=== PATIENT | female | born 1945 | race Two or more races ===

== ENCOUNTER → 2016-10-15 | Outpatient (CLI) | payer OTHER ==
[2016-10-15 17:45] LABS: Basophils # (auto) 0.1 uL; Basophils % (auto) 0.5 % (0.0-2.0); Eosinophils # (auto) 0.3 uL; Eosinophils % (auto) 2.5 % (0.0-7.0); Hematocrit 45.9 % (36.0-46.0); Hemoglobin 15.3 g/dL (12.2-16.2); Lymphocytes % (auto) 35.9 % (10.0-50.0); Mean Corpuscular Hemoglobin 29.9 pg (28.0-32.0); Mean Corpuscular Hgb Conc. 33.2 g/dL (32.0-36.0); Mean Platelet Volume 9.7 fL (7.4-10.4); Monocytes % (auto) 6.8 % (0.0-12.0); Neutrophils # (auto) 7.6 uL; Neutrophils % (auto) 54.3 % (37.0-80.0); Platelet Count (auto) 388 10^3/uL (140-450); Red Cell Distribution Width 14.2 % (11.6-16.0)
[2016-10-15 17:59] LABS: Albumin 3.7 g/dL (3.4-5.0); BUN/Creatinine Ratio 27.3; Bilirubin, Total 0.2 mg/dL (0.2-1.0); Calcium 10.1 mg/dL (8.5-10.1); Potassium 4.5 mmol/L (3.5-5.1); Total Protein 7.6 g/dL (6.4-8.2)
== END | disposition home or self-care (01) ==
LOC: LAB 12:01
PROVIDERS: ATTEND Internal Medicine Cardiovascular Disease
DX: I10 Essential (primary) hypertension (principal); E78.00 Pure hypercholesterolemia, unspecified; E11.9 Type 2 diabetes mellitus without complications; E03.9 Hypothyroidism, unspecified; D64.9 Anemia, unspecified
CPT/HCPCS: 36415; 80053; 80061; 83036; 84439; 84443; 85025

== ENCOUNTER → 2017-03-08 | Outpatient (CLI) | payer BC ==
[2017-03-08 16:28] LABS: Urine Bilirubin Negative (Negative); Urine Blood Negative /uL (Negative); Urine Color Yellow (Yellow); Urine Glucose 4+ mg/dL (Normal); Urine Ketone Negative (Negative); Urine Nitrite POSITIVE (Negative); Urine Urobilinogen Normal (Negative)
[2017-03-08 16:36] LABS: Basophils # (auto) 0.1 uL; Basophils % (auto) 0.8 % (0.0-2.0); Eosinophils # (auto) 0.4 uL; Eosinophils % (auto) 3.5 % (0.0-7.0); Hemoglobin 16.4 g/dL (12.2-16.2); Lymphocytes # (auto) 3.8 uL; Mean Corpuscular Hemoglobin 30.5 pg (28.0-32.0); Mean Corpuscular Hgb Conc. 33.4 g/dL (32.0-36.0); Mean Corpuscular Volume 91.4 fL (80.0-100.0); Mean Platelet Volume 9.2 fL (6.9-10.8); Monocytes % (auto) 8.1 % (0.0-12.0); Neutrophils # (auto) 6.5 uL; Neutrophils % (auto) 55.6 % (37.0-80.0); Nucleated Red Blood Cells % 0.2 %; Platelet Count (auto) 342 10^3/uL (140-450); Red Cell Distribution Width 13.8 % (11.8-14.3); White Blood Cell 11.8 10^3/uL (4.4-10.8)
[2017-03-08 16:51] LABS: Albumin 4.1 g/dL (3.4-5.0); BUN/Creatinine Ratio 19.5; Bilirubin, Direct 0.1 mg/dL (0-0.2); Bilirubin, Total 0.3 mg/dL (0.2-1.0); Calcium 10.1 mg/dL (8.5-10.1); Potassium 4.7 mmol/L (3.5-5.1); Total Protein 8.2 g/dL (6.4-8.2)
== END | disposition home or self-care (01) ==
LOC: LAB 10:43
PROVIDERS: ATTEND Internal Medicine Cardiovascular Disease
DX: I10 Essential (primary) hypertension (principal); E78.00 Pure hypercholesterolemia, unspecified; K74.1 Hepatic sclerosis; E11.9 Type 2 diabetes mellitus without complications; E03.9 Hypothyroidism, unspecified; D64.9 Anemia, unspecified; E55.9 Vitamin D deficiency, unspecified; N39.0 Urinary tract infection, site not specified
CPT/HCPCS: 36415; 80048; 80061; 80076; 81003; 82306; 83036; 84443; 85025; 87086

== ENCOUNTER → 2017-11-01 | Outpatient (CLI) | payer BC ==
[2017-11-01 12:48] LABS: Albumin 3.6 g/dL (3.4-5.0); Bilirubin, Total 0.3 mg/dL (0.2-1.0); Calcium 9.8 mg/dL (8.5-10.1); Total Protein 7.4 g/dL (6.4-8.2)
== END | disposition home or self-care (01) ==
LOC: LAB 10:36
PROVIDERS: ATTEND Internal Medicine
DX: E78.5 Hyperlipidemia, unspecified (principal); I10 Essential (primary) hypertension; E03.9 Hypothyroidism, unspecified; E11.9 Type 2 diabetes mellitus without complications
CPT/HCPCS: 36415; 80053; 80061; 83036; 84443

== ENCOUNTER → 2018-06-02 | Outpatient (CLI) | payer BC ==
[2018-06-02 12:22] LABS: Albumin 3.4 g/dL (3.4-5.0); Calcium 9.2 mg/dL (8.5-10.1)
[2018-06-02 12:36] LABS: BUN/Creatinine Ratio 25.6; Bilirubin, Total 0.2 mg/dL (0.2-1.0); Total Protein 6.9 g/dL (6.4-8.2)
== END | disposition home or self-care (01) ==
LOC: LAB 10:22
PROVIDERS: ATTEND Internal Medicine
DX: E11.40 Type 2 diabetes mellitus with diabetic neuropathy, unspecified (principal); E78.5 Hyperlipidemia, unspecified; I10 Essential (primary) hypertension
CPT/HCPCS: 36415; 80053; 80061; 83036

== ENCOUNTER 2018-07-25 12:39 | Inpatient (IN) | payer BC, OTHER ==
[~2018-07-25] VITALS: Ht 162.6 cm; Wt 80.6 kg
[2018-07-25] MEDS ORDERED: HYDROcodone-ACET 5/325MG TAB PO ONE (16:00)
[2018-07-25 17:01] LABS: Basophils # (auto) 0.2 uL; Eosinophils # (auto) 0.2 uL; Hematocrit 47.2 % (36.0-46.0); Hemoglobin 15.5 g/dL (12.2-16.2); Lymphocytes # (auto) 3.6 uL; Lymphocytes % (auto) 22.3 % (10.0-50.0); Mean Corpuscular Hemoglobin 29.6 pg (28.0-32.0); Mean Corpuscular Hgb Conc. 32.8 g/dL (32.0-36.0); Mean Corpuscular Volume 90.1 fL (80.0-100.0); Monocytes # (auto) 1.1 uL; Monocytes % (auto) 7.1 % (0.0-12.0); Neutrophils # (auto) 11.1 uL; Neutrophils % (auto) 68.6 % (37.0-80.0); Nucleated Red Blood Cells % 0.1 %; Platelet Count (auto) 328 10^3/uL (140-450); Red Blood Cells 5.24 10^6/uL (4.0-5.20); White Blood Cell 16.2 10^3/uL (4.4-10.8)
[2018-07-25 17:17] LABS: Albumin 3.8 g/dL (3.4-5.0); Calcium 9.8 mg/dL (8.5-10.1); Potassium 5.2 mmol/L (3.5-5.1)
[2018-07-25 17:21] LABS: BUN/Creatinine Ratio 24.7; Bilirubin, Total 0.3 mg/dL (0.2-1.0); Total Protein 7.2 g/dL (6.4-8.2)
[2018-07-25 17:22] LABS: INR 0.97 (0.9-1.15); Partial Thromboplastin Time 24.8 sec (23.78-33.04); Prothrombin Time 10.4 sec (9.27-12.13)
[2018-07-25] MEDS ORDERED: SODIUM CHLORIDE 0.9% 2,000 ML IV ONE (17:54)
[2018-07-25] MEDS ORDERED: cefTRIAXone 1GM/50ML D5W 50 ML IV ONE (18:00)
[2018-07-25 18:28] LABS: Urine Bacteria MANY /hpf (None Seen); Urine Blood Negative /uL (Negative); Urine Hyaline Cast FEW /lpf (0 - 2); Urine Specific Gravity 1.022 (1.001-1.035); Urine WBC 1 /hpf (0 - 5)
[2018-07-25] MEDS ORDERED: MORPHINE SULFATE 4 MG/ML SYR/VIAL IV PRN (18:30)
[2018-07-25] MEDS ORDERED: ALBUTEROL SULF 2.5 MG/0.5ML(0.5%) NEB SOLN NEB PRN (18:30)
[2018-07-25] MEDS ORDERED: DEXTROSE (50%) 50ML SYRG IV PRN (18:30)
[2018-07-25] MEDS ORDERED: ACETAMINOPHEN 500 MG TAB PO PRN (18:30)
[2018-07-25] MEDS ORDERED: NITROGLYCERIN 0.4 MG SL TAB SL PRN (18:30)
[2018-07-25] MEDS ORDERED: IPRATROPIUM BROM 0.5 MG/2.5ML INH SOL NEB PRN (18:30)
[2018-07-25] MEDS: ACCU-CHEK COMFORT CURVE STRIP VI SCH (19:44)
[2018-07-25 20:06] VITALS: BP 150/85
[2018-07-25 20:18] VITALS: BP 120/64
--- NOTE | 2018-07-25 21:00 | NUR ---
OPENING NOTE RECEIVED PATIENT FROM ER. ASSUMING ROLE OF CARE OF PATIENT AT THIS TIME. PATIENT SHOWING NO SIGN OF DISTRESS, SHORTNESS OF BREATH, AND PATIENT STATES PAIN AT 9/10. PATIENT WILL BE MEDICATED PER PAIN PROTOCOL WHEN AVAILABLE. PATIENT EDUCATED ON PLAN OF CARE FOR THE NIGHT AND PATIENT VERBALIZED UNDERSTANDING. BED LOWERED, CALL LIGHT WITHIN REACH AND PATIENT WILL BE ROUNDED ON EVERY HOUR AND NEEDED.
[2018-07-25] MEDS: MORPHINE SULF INJ 2 MG/ML SYRINGE 1ML IV PRN (21:02)
[2018-07-25] MEDS ORDERED: TEMA30CA PO (21:21)
[2018-07-25] MEDS ORDERED: LISI-275 PO (21:21)
[2018-07-25] MEDS ORDERED: PRO10T PO (21:21)
[2018-07-25] MEDS ORDERED: METF-371 PO (21:21)
[2018-07-25] MEDS ORDERED: GLIM4TAB42 PO (21:21)
[2018-07-25] MEDS ORDERED: GEMF600T7 PO (21:21)
[2018-07-25] MEDS ORDERED: LEVO50TA7 PO (21:21)
[2018-07-25] MEDS ORDERED: SITA100T7 PO (21:21)
[2018-07-25 22:00] VITALS: BP 150/85
--- NOTE | 2018-07-25 22:01 | NUR ---
HOSPITALIST PAGED PATIENT REQUESTING A NICOTINE PATCH. PATIENT UNABLE TO WALK DOWN TO SMOKE AND IS REQUESTING A PATCH FOR HER CRAVINGS.
[2018-07-25] MEDS: TEMAZEPAM 15 MG CAP PO PRN (22:09)
[2018-07-25] MEDS: InsuLIN REG 1unit/0.01ml Soln (100units/ml) SC SCH (22:09)
--- NOTE | 2018-07-25 22:15 | NUR ---
Respiratory note: PT ASSESSED FOR PRN MED NEB TX. PT DENIES ANY SOB AT THIS TIME. B/S ARE DIM/ CLEAR. SPO2 94% ON R/A, HR 70, RR 18. PT INFORMED TO HAVE RT PAGED IF NEEDED.
[2018-07-25] MEDS ORDERED: NICOTINE 14 MG/24HR TOPICAL PATCH TD ONE (22:30)
[2018-07-26] MEDS: HYDROcodone-ACET 5/325MG TAB PO PRN (00:04)
[2018-07-26] MEDS: MORPHINE SULF INJ 2 MG/ML SYRINGE 1ML IV PRN ×2 (04:00→20:59)
[2018-07-26 05:26] VITALS: BP 124/66
[2018-07-26 05:54] LABS: Basophils # (auto) 0.1 uL; Basophils % (auto) 0.6 % (0.0-2.0); Eosinophils # (auto) 0.2 uL; Eosinophils % (auto) 2.6 % (0.0-7.0); Hematocrit 41.9 % (36.0-46.0); Hemoglobin 13.9 g/dL (12.2-16.2); Lymphocytes # (auto) 3.3 uL; Lymphocytes % (auto) 35.6 % (10.0-50.0); Mean Corpuscular Hemoglobin 29.9 pg (28.0-32.0); Mean Corpuscular Hgb Conc. 33.2 g/dL (32.0-36.0); Mean Corpuscular Volume 90.1 fL (80.0-100.0); Monocytes % (auto) 10.5 % (0.0-12.0); Neutrophils # (auto) 4.7 uL; Neutrophils % (auto) 50.7 % (37.0-80.0); Platelet Count (auto) 278 10^3/uL (140-450); Red Blood Cells 4.65 10^6/uL (4.0-5.20); White Blood Cell 9.3 10^3/uL (4.4-10.8)
[2018-07-26 06:17] LABS: Potassium 4.2 mmol/L (3.5-5.1)
[2018-07-26 06:32] LABS: BUN/Creatinine Ratio 29.6; Calcium 8.7 mg/dL (8.5-10.1)
[2018-07-26 08:00] VITALS: BP 156/73
--- NOTE | 2018-07-26 08:00 | NUR ---
RECEIVED PT RESTING IN BED, CALL LIGHT WITH IN REACH, PT DENIES ANY PAIN OR DISCOMFORT AT THIS TIME, WILL CONTINUE TO MONITOR PT.
[2018-07-26 09:00] VITALS: BP 150/73
[2018-07-26] MEDS: cefTRIAXone 1GM/50ML D5W 50 ML IV SCH (09:07)
[2018-07-26] MEDS ORDERED: GASTROGRAFIN 30 ML SOL ONE ×2 (09:38→14:27)
--- NOTE | 2018-07-26 10:19 | NUR ---
I faxed walker order to [facility].
[2018-07-26] MEDS: ACCU-CHEK COMFORT CURVE STRIP VI SCH ×3 (11:30→22:00)
[2018-07-26] MEDS: InsuLIN REG 1unit/0.01ml Soln (100units/ml) SC SCH ×3 (12:23→22:00)
[2018-07-26 13:00] VITALS: BP 150/73
--- NOTE | 2018-07-26 13:25 | NUR ---
PT TAKEN TO RADIOLOGY.
[2018-07-26] MEDS ORDERED: GADOPENTETATE DIMEGLUMINE (10MMOL/20 ML) VIAL IV ONE (13:45)
--- NOTE | 2018-07-26 14:50 | NUR ---
I called [facility] to check on ETA for walker, per Katherine at [facility] patient's Seth is going to sweet pickle maker the item from their building.
[2018-07-26] MEDS ORDERED: NICOTINE 21MG/24 HR TOPICAL PATCH TD ONE (16:00)
[2018-07-26] MEDS ORDERED: IOHEXOL 300 MG/ML 100ML BOTTLE IJ ONE ×2 (16:09→16:15)
[2018-07-26 17:00] VITALS: BP 121/72
--- NOTE | 2018-07-26 17:00 | NUR ---
PT BACK AT THE ROOM FROM RADIOLOGY.
--- NOTE | 2018-07-26 19:28 | NUR ---
Respiratory note: ASSESSED PT FOR PRN MED NEB AT THIS TIME, PT DENIES SOB AT THIS TIME, NO RESP DISTRESS NOTED, NO TX INDICATED, PULSE OX 92% ON RA, HR 103, RR 20, BILATERAL BS DECREASED.
[2018-07-26 22:00] VITALS: BP 134/65
[2018-07-26] MEDS: TEMAZEPAM 15 MG CAP PO PRN (23:50)
[2018-07-26] MEDS: ONDANSETRON HCL 4 MG/2 ML VIAL IV PRN (23:59)
[2018-07-27] MEDS: HYDROcodone-ACET 5/325MG TAB PO PRN (02:51)
[2018-07-27 05:25] VITALS: BP 108/64
[2018-07-27] MEDS: InsuLIN REG 1unit/0.01ml Soln (100units/ml) SC SCH ×4 (06:21→22:19)
[2018-07-27] MEDS: ACCU-CHEK COMFORT CURVE STRIP VI SCH ×4 (06:21→22:20)
[2018-07-27 08:00] VITALS: BP 119/84
[2018-07-27 08:06] LABS: Immunoglobulin G, Serum 480 mg/dL (700-1600)
--- NOTE | 2018-07-27 08:47 | NUR ---
pt reports she doesn't want to wear her slipper socks, as she is hot.
[2018-07-27] MEDS: cefTRIAXone 1GM/50ML D5W 50 ML IV SCH (09:06)
[2018-07-27] MEDS: NICOTINE 21MG/24 HR TOPICAL PATCH TD SCH (09:09)
[2018-07-27] MEDS: MORPHINE SULF INJ 2 MG/ML SYRINGE 1ML IV PRN ×2 (09:14→16:06)
--- NOTE | 2018-07-27 11:19 | NUR ---
SPOKE WITH PT FAMILY. FAMILY REPORTS PT WAS ON DEXTROSE AND IT WAS RAISING PT BLOOD SUGAR. FAMILY REQUESTS PT NOT BE ON DEXTROSE. EXPLAINED TO FAMILY PT IS CURRENTLY SALINE LOCKED AND NOT RECEIVING ANY FLUIDS WITH SUGAR. FAMILY AWARE, WILL CONTINUE TO MONITOR.
[2018-07-27 12:00] VITALS: BP 120/63
--- NOTE | 2018-07-27 13:05 | NUR ---
PT REFUSED THORACIC MRI, SHE REPORTS SHE WANTS TO DO IT OUT PATIENT, WILL CONTINUE TO MONITOR.
[2018-07-27] MEDS: ONDANSETRON HCL 4 MG/2 ML VIAL IV PRN (16:07)
[2018-07-27 17:00] VITALS: BP 134/70
--- NOTE | 2018-07-27 19:40 | NUR ---
RECEIVED PATIENT LYING IN BED, AWAKE, ALERT, ORIENTED X4. NO S/S OF RESPIRATORY DISTRESS, DENIES SOB AND CHEST PAIN. ORIENTED ON PLAN OF CARE. BED IS LOCKED AND IN LOWEST LEVEL, SIDE RAILS UP X2. CALL LIGHT WITHIN REACH. WILL CONTINUE TO MONITOR
--- NOTE | 2018-07-27 20:36 | NUR ---
Respiratory note: ASSESSMENT FOR PRN MED NEB TX. PT PRESENTING NO RESPIRATORY DISTRESS. HR 104, SPO2 92% ON ROOM AIR, RR 19, BS CLEAR/DIMINISHED. MED NEB TX NOT INDICATED AT THIS TIME. WILL CONTINUE TO MONITOR.
[2018-07-27] MEDS: DEXAMETHASONE 4 MG TAB PO SCH (21:50)
[2018-07-27] MEDS: MORPHINE SULF 30 mg ER tab PO SCH (21:50)
[2018-07-27 21:52] VITALS: BP 122/85
[2018-07-27] MEDS: TEMAZEPAM 15 MG CAP PO PRN (22:20)
[2018-07-28] VITALS (7 sets, daily range): BP systolic 105–129; BP diastolic 62–80
--- NOTE | 2018-07-28 02:20 | NUR ---
ROUNDS PATIENT IS ASLEEP. NO S/S OF RESPIRATORY DISTRESS. WILL CONTINUE TO MONITOR
[2018-07-28] MEDS: MORPHINE SULF INJ 2 MG/ML SYRINGE 1ML IV PRN (06:41)
[2018-07-28] MEDS: ACCU-CHEK COMFORT CURVE STRIP VI SCH ×4 (06:41→21:46)
[2018-07-28] MEDS: InsuLIN REG 1unit/0.01ml Soln (100units/ml) SC SCH ×4 (06:41→23:29)
--- NOTE | 2018-07-28 07:15 | NUR ---
OPENING SHIFT NOTE ASSUMED CARE OF PATIENT FROM SCREW MACHINE TENDER RN NAVDEEP. PATIENT IS AWAKE AND ALERT X4. PATIENT HAS NO S/S OF DISTRESS/SOB OR PAIN. INSTRUCTED PATIENT ON POC, PATIENT VERBALIZED UNDERSTANDING. BED IS IN LOWEST POSITION WITH SIDE RAILS RAISED X2, BED WHEELS LOCKED, BEDSIDE COMMODE, CANE AND CALL LIGHT ARE WITHIN REACH. WILL CONTINUE TO MONITOR.
--- NOTE | 2018-07-28 07:35 | NUR ---
CARE ENDORSED TO AM SHIFT RN
--- NOTE | 2018-07-28 08:40 | NUR ---
Respiratory note: ASSESSMENT FOR PRN MED NEB TX. PT STATED NO SOB. HR 90, SPO2 92% ON ROOM AIR, RR 16, BS DIMINISHED BILATERALLY. MED NEB TX NOT INDICATED AT THIS TIME. WILL CONTINUE TO MONITOR.
[2018-07-28] MEDS: cefTRIAXone 1GM/50ML D5W 50 ML IV SCH (10:01)
[2018-07-28] MEDS: MORPHINE SULF 30 mg ER tab PO SCH ×2 (10:03→21:44)
[2018-07-28] MEDS: NICOTINE 21MG/24 HR TOPICAL PATCH TD SCH (10:05)
[2018-07-28] MEDS: DEXAMETHASONE 4 MG TAB PO SCH ×2 (10:05→21:44)
--- NOTE | 2018-07-28 14:46 | NUR ---
Nutrition Assessment Notes Please see attached link for complete assessment Est. Needs ABW 67 [id number] kcal (23-25 kcal/kgBW), 67-73 gms pro (1.0-1.1 gms/kgBW). Will continue to monitor pertinent labs and reassess nutrient need prn Addendum: 07/28/18 at [address] Amended: Links added.
--- NOTE | 2018-07-28 18:55 | NUR ---
CLOSING SHIFT NOTE ENDORSED CARE TO ANDROID PLATFORM DEVELOPER JEAN PAUL العراقي. PATIENT HAS NO S/S OF DISTRESS/SOB OR PAIN AT THIS TIME. Addendum: 07/28/18 at 1917 by Alyse Rollins RN RN REPORT GIVEN TO ANDROID PLATFORM DEVELOPER JEAN PAUL HERRERA
[2018-07-29 05:02] VITALS: BP 122/64
[2018-07-29] MEDS: ACCU-CHEK COMFORT CURVE STRIP VI SCH ×4 (07:12→23:11)
[2018-07-29] MEDS: InsuLIN REG 1unit/0.01ml Soln (100units/ml) SC SCH ×5 (07:13→23:43)
[2018-07-29 08:00] VITALS: BP_SYST 127; BP_SYST 141; BP_DIAS 77
[2018-07-29] MEDS: cefTRIAXone 1GM/50ML D5W 50 ML IV SCH (09:01)
[2018-07-29] MEDS: NICOTINE 21MG/24 HR TOPICAL PATCH TD SCH (09:35)
[2018-07-29] MEDS: DEXAMETHASONE 4 MG TAB PO SCH ×2 (09:35→23:11)
[2018-07-29] MEDS: MORPHINE SULF INJ 2 MG/ML SYRINGE 1ML IV PRN ×3 (09:36→23:45)
[2018-07-29] MEDS: MORPHINE SULF 30 mg ER tab PO SCH ×2 (10:01→23:10)
--- NOTE | 2018-07-29 10:32 | NUR ---
ASSESSED PT FOR PRN MED NEB TX. NO SOB NOTED, NO RESPIRATORY DISTRESS, NO WHEEZING. PT ON RA WITH AN SPO2 OF 90%, HR 72, RR 30 WITH CLEAR/DIMINISHED BS. PT'S SATURATION KEPT DROPPING TO 88%. PLACED PT ON 2L NC AND SATURATION IMPROVED TO 94%. WILL CONTINUE TO MONITOR. Signed: 07/29/18 at 1519 by JOCELIN BARRETO SRT <Co-Signature Required> Co-Signed: 07/29/18 at 1519 by RT EDWARD RT
--- NOTE | 2018-07-29 11:55 | NUR ---
ELEVATED BLOOD SUGAR BS 406. REPEATED: 407. INFORMED DR ISBELL. NEW ORDER RECEIVED AND CARRIED OUT.
[2018-07-29] MEDS ORDERED: INSULIN LANTUS (GLARGINE) 1 /0.01ml (100units/ml) SC ONE (12:15)
[2018-07-29 12:30] VITALS: BP 103/58
--- NOTE | 2018-07-29 13:15 | NUR ---
IV insertion IV access obtained, via clean sterile technique by inserting 20 gauge catheter at LEFT FOREARM After 1 attempt(s). IV secured properly. No trauma to site. Patient tolerated well. NOTE:
--- NOTE | 2018-07-29 13:20 | NUR ---
OLD IV removal IV ON RIGHT WRIST DC'd with clean sterile technique, catheter fully intact. Pressure dressing applied to site. Patient tolerated well. NOTE:
[2018-07-29 17:00] VITALS: BP 140/56
--- NOTE | 2018-07-29 17:00 | NUR ---
ELEVATED BLOOD SUGAR BS 343. INFORMED DR ISBELL AGAIN. ORDER FOR 20 UNITS REGULAR INSULIN IV RECEIVED AND CARRIED OUT.
[2018-07-29] MEDS ORDERED: InsuLIN REG 1unit/0.01ml Soln (100units/ml) IV ONE (17:15)
--- NOTE | 2018-07-29 19:30 | NUR ---
PT ASSESSED FOR PRN MED NEB TX. SPO2 95% ON 2L, HR 86. PT DENIES ANY RESPIRATORY DISTRESS. NO TX INDICATED. PT IS AWARE TO HAVE RT PAGED IF TX NEEDED.
[2018-07-29 22:00] VITALS: BP 122/72
[2018-07-29] MEDS ORDERED: INSULIN LANTUS (GLARGINE) 1 /0.01ml (100units/ml) SC SCH (22:00)
--- NOTE | 2018-07-29 23:20 | NUR ---
OPENING NOTES RECEIVED REPORT FROM DAY SHIFT NURSE. PT IS AWAKE AND ORIENTATED X 4 WITH NO S/S OF DISTRESS NOR PAIN. BED IS IN LOWEST POSITION WITH SIDE RAILS UP X 2. BED BRAKES ARE LOCKED AND CALL LIGHT IS WITHIN REACH. WILL CONTINUE TO MONITOR Q 1HR.
[2018-07-29] MEDS: INSULIN LANTUS (GLARGINE) 1 /0.01ml (100units/ml) SC SCH (23:44)
[2018-07-30] MEDS: TEMAZEPAM 15 MG CAP PO PRN ×2 (00:52→23:47)
[2018-07-30 05:00] VITALS: BP 128/69
[2018-07-30] MEDS: InsuLIN REG 1unit/0.01ml Soln (100units/ml) SC SCH ×4 (06:24→22:19)
[2018-07-30] MEDS: ACCU-CHEK COMFORT CURVE STRIP VI SCH ×4 (06:25→22:20)
[2018-07-30] MEDS: INSULIN LANTUS (GLARGINE) 1 /0.01ml (100units/ml) SC SCH ×2 (06:25→22:20)
[2018-07-30 06:36] LABS: Basophils # (auto) 0 uL; Basophils % (auto) 0.5 % (0.0-2.0); Eosinophils # (auto) 0.1 uL; Eosinophils % (auto) 0.8 % (0.0-7.0); Hematocrit 42.5 % (36.0-46.0); Hemoglobin 14.5 g/dL (12.2-16.2); Lymphocytes # (auto) 2.3 uL; Lymphocytes % (auto) 30.6 % (10.0-50.0); Mean Corpuscular Hemoglobin 30.1 pg (28.0-32.0); Mean Corpuscular Hgb Conc. 34.1 g/dL (32.0-36.0); Mean Corpuscular Volume 88.5 fL (80.0-100.0); Monocytes # (auto) 0.9 uL; Monocytes % (auto) 12.3 % (0.0-12.0); Neutrophils # (auto) 4.2 uL; Neutrophils % (auto) 55.8 % (37.0-80.0); Nucleated Red Blood Cells % 0.1 %; Platelet Count (auto) 249 10^3/uL (140-450); Red Blood Cells 4.81 10^6/uL (4.0-5.20); Red Cell Distribution Width 13.7 % (11.8-14.3); White Blood Cell 7.5 10^3/uL (4.4-10.8)
--- NOTE | 2018-07-30 06:49 | NUR ---
PRN MN TX NOT INDICATED AT THIS TIME. PT IS AWAKE, ALERT AND ORIENTED. PT ON 2L/MIN VIA NC, 95% O2 SATS, HR 68 BPM, RR18, BS ARE CLEAR TO AUSCULTATION. RESPIRATION IS EVEN AND NONLABORED. SKIN IS DRY AND WARM TO THE TOUCH. PT DENIES SOB OR ANY OTHER RESPIRATORY DISTRESS. PT INSTRUCTED TO CALL IF MN TX IS INDICATED. PT VERBALIZED UNDERSTANDING.
--- NOTE | 2018-07-30 07:30 | NUR ---
Opening Shift Note Assumed care of patient, awake and alert. No S/S of distress/SOB or pain. Instructed on POC and to call for assist PRN, will continue to monitor for changes Q1hr and PRN.
--- NOTE | 2018-07-30 07:44 | NUR ---
closing notes endorsed care to day shift RNAra.
[2018-07-30 08:00] VITALS: BP 105/63
[2018-07-30] MEDS: cefTRIAXone 1GM/50ML D5W 50 ML IV SCH (08:41)
[2018-07-30] MEDS: NICOTINE 21MG/24 HR TOPICAL PATCH TD SCH (09:36)
[2018-07-30] MEDS: DEXAMETHASONE 4 MG TAB PO SCH ×2 (09:36→22:19)
[2018-07-30] MEDS: MORPHINE SULF 30 mg ER tab PO SCH ×2 (09:47→22:19)
[2018-07-30] MEDS: MORPHINE SULF INJ 2 MG/ML SYRINGE 1ML IV PRN ×2 (09:47→21:25)
[2018-07-30 12:00] VITALS: BP 117/63
[2018-07-30 17:00] VITALS: BP 147/70
--- NOTE | 2018-07-30 19:13 | NUR ---
CLOSING NOTES PT AWAKE, SITTING UP AND EATING DINNER. DENIES PAIN OR SOB. VERBALIZED COMFORT.
[2018-07-30 22:00] VITALS: BP 140/71
[2018-07-31 06:00] VITALS: BP 112/66
[2018-07-31] MEDS: ACCU-CHEK COMFORT CURVE STRIP VI SCH ×4 (06:07→22:18)
--- NOTE | 2018-07-31 06:08 | NUR ---
PT ASSESSED FOR PRN HHN TX. PT IS ON 2LNC, SPO2 94%, HR 71, RR 16. NO S/S OF RESPIRATORY DISTRESS. PT AWARE OF PRN AVAILABLE IF INDICATED. WILL CONTINUE TO MONITOR.
[2018-07-31] MEDS: InsuLIN REG 1unit/0.01ml Soln (100units/ml) SC SCH ×4 (06:19→22:17)
[2018-07-31] MEDS: INSULIN LANTUS (GLARGINE) 1 /0.01ml (100units/ml) SC SCH ×2 (06:20→22:18)
[2018-07-31 07:43] VITALS: BP 112/66
--- NOTE | 2018-07-31 07:50 | NUR ---
closing notes endorsed care to day shift RNElizabeth.
[2018-07-31 09:17] VITALS: BP 107/64
[2018-07-31] MEDS: DEXAMETHASONE 4 MG TAB PO SCH ×2 (09:41→22:16)
[2018-07-31] MEDS: NICOTINE 21MG/24 HR TOPICAL PATCH TD SCH (09:41)
[2018-07-31] MEDS: MORPHINE SULF 30 mg ER tab PO SCH ×2 (09:41→22:17)
[2018-07-31] MEDS: cefTRIAXone 1GM/50ML D5W 50 ML IV SCH (09:42)
[2018-07-31 12:21] VITALS: BP 128/73
[2018-07-31] MEDS: MORPHINE SULF INJ 2 MG/ML SYRINGE 1ML IV PRN ×2 (12:31→23:22)
[2018-07-31 17:12] VITALS: BP 147/69
--- NOTE | 2018-07-31 19:00 | NUR ---
Patient care endorsed endorsed care to Gurpreet baez. Pt sitting up in bed in no acute distress or sob noted.
[2018-07-31 22:00] VITALS: BP 140/55
[2018-07-31] MEDS: TEMAZEPAM 15 MG CAP PO PRN (23:15)
[2018-08-01] MEDS ORDERED: HYDROmorphone HCL 2 MG/ML VL IV PRN
[2018-08-01 05:00] VITALS: BP 122/65
[2018-08-01] MEDS: InsuLIN REG 1unit/0.01ml Soln (100units/ml) SC SCH ×4 (06:48→22:03)
[2018-08-01] MEDS: INSULIN LANTUS (GLARGINE) 1 /0.01ml (100units/ml) SC SCH ×2 (06:49→22:04)
[2018-08-01] MEDS: ACCU-CHEK COMFORT CURVE STRIP VI SCH ×4 (06:49→22:04)
[2018-08-01] MEDS ORDERED: LIDOCAINE 1% (LOCAL ANESTH.) PF 5ml SDV ONE (07:58)
--- NOTE | 2018-08-01 08:35 | NUR ---
Specimen taken to lab Bone marrow specimens taken to lab and given to Oriana in lab as ordered by DR Diaz. Will cont care
[2018-08-01 09:00] VITALS: BP 117/61
[2018-08-01] MEDS: cefTRIAXone 1GM/50ML D5W 50 ML IV SCH (11:03)
[2018-08-01] MEDS: DEXAMETHASONE 4 MG TAB PO SCH (11:03)
[2018-08-01] MEDS: MORPHINE SULF 30 mg ER tab PO SCH ×2 (11:03→22:04)
[2018-08-01] MEDS: NICOTINE 21MG/24 HR TOPICAL PATCH TD SCH (11:44)
[2018-08-01 13:00] VITALS: BP 132/60
[2018-08-01 17:00] VITALS: BP 121/62
--- NOTE | 2018-08-01 18:00 | NUR ---
Critical BS BS 471, RECHECK 488. GAVE 10 UNITS SUBQ ORDERED PER SLIDING SCALE, MD ISBELL AWARE. NEW ORDERS FOR 20 UNITS IV INSUL ONCE AND D/C DECADRON. MEDICATE ORDERED
[2018-08-01] MEDS ORDERED: InsuLIN REG 1unit/0.01ml Soln (100units/ml) IV ONE (18:15)
--- NOTE | 2018-08-01 19:25 | NUR ---
Opening Shift Note Assumed care of patient from day shift RN Lana. Pt is asleep, on 2L NC, respirations even equal and unlabored. No S/S of distress/SOB or pain. Safety maintained with bed rails upx2, locked and in lowest position with call brenner within reach. Instructed on POC and to call for assist PRN, will continue to monitor for changes Q1hr and PRN.
[2018-08-01 22:00] VITALS: BP 131/57
[2018-08-01] MEDS: TEMAZEPAM 15 MG CAP PO PRN (22:04)
[2018-08-02] MEDS: MORPHINE SULF INJ 2 MG/ML SYRINGE 1ML IV PRN ×3 (00:03→18:34)
--- NOTE | 2018-08-02 00:20 | NUR ---
IV insertion IV access obtained, via clean sterile technique by inserting 22 gauge catheter at RIGHT FA after 2 attempt(s). IV secured properly. No trauma to site. Patient tolerated well. IV removal LEFT FA IV LEAKING. IV DC'd with clean sterile technique, catheter fully intact. Pressure dressing applied to site. Patient tolerated well.
[2018-08-02 05:00] VITALS: BP 110/53
[2018-08-02] MEDS: InsuLIN REG 1unit/0.01ml Soln (100units/ml) SC SCH ×3 (06:17→17:37)
[2018-08-02] MEDS: INSULIN LANTUS (GLARGINE) 1 /0.01ml (100units/ml) SC SCH (06:17)
[2018-08-02] MEDS: ACCU-CHEK COMFORT CURVE STRIP VI SCH ×3 (06:17→17:35)
[2018-08-02 09:05] VITALS: BP 143/73
[2018-08-02] MEDS: cefTRIAXone 1GM/50ML D5W 50 ML IV SCH (10:15)
[2018-08-02] MEDS: MORPHINE SULF 30 mg ER tab PO SCH (10:16)
[2018-08-02] MEDS: NICOTINE 21MG/24 HR TOPICAL PATCH TD SCH (10:17)
[2018-08-02 13:00] VITALS: BP 120/61
--- NOTE | 2018-08-02 15:12 | NUR ---
Nutrition Follow-up Notes Wt.: 80.6 kg Pt was sleeping with no family by bedside. per pt records pt s/p bone marrow. pt with no distress noted per nursing. pt is currently on CCHO 60 gm/meal diet with adequate PO of 75% x 6 per RN doc Est. Needs ABW 67 [id number] kcal (23-25 kcal/kgBW), 67-73 gms pro (1.0-1.1 gms/kgBW). Will continue to monitor pertinent labs and reassess nutrient need prn Labs: No new labs today POC GLU 171 H Skin: J Carlos scale 19, low risk, skin intact per RN doc GI: Pt had 2 BM today per wire harness assembler. PES: Altered nutrition related lab values r/t current/chronic medical condition aeb hyperglycemia, elev BUN , A1C Decreased nutrient needs r/t adiposity aeb pt`s high BMI of 30.8 kgm2 Will continue to monitor PO intake, skin status, pertinent labs and weight trend. F/u in 3 to 5 days. Rec.: 1.) Refer to CDE on DC. 2) continue current plan of care
[2018-08-02 17:00] VITALS: BP 128/49
--- NOTE | 2018-08-02 18:00 | NUR ---
Regarding SS consult I spoke to corporate safety manager Delonte regarding pending consult for HH. Per Delonte states HH does not have contracted facilities and is very difficult to obtain services due to pt's insurance and that they don't have home care visitors. Per Delonte, also states pt may have a high copay if they accept patient but acceptance does not always happens. Per Delonte she cannot set up HH tonight for patient as ordered. I will inform Dr Donato
--- NOTE | 2018-08-02 18:05 | NUR ---
Spoke to regarding SS consult I spoke to MD Donato and notified him that per clinical case manager Delonte, HH does not have contracted facilities and is very difficult to obtain services due to pt's insurance and that they don't have home care visitors. Per Delonte, also states pt may have a high copay if they accept patient but acceptance does not always happens. MD Donato states to cancel order for HH and he states he will see patient as outpatient and arrange for Outpatient Physical therapy. Patient instructed to follow up with PCP Dr Donato. Order received to d/c patient home today and have pt f/u with him. Pt verbalized understanding and states she will call to make appt with doctor Tanmay.
[2018-08-02] MEDS: ONDANSETRON HCL 4 MG/2 ML VIAL IV PRN (18:33)
[2018-08-02 19:28] VITALS: BP 128/49
--- NOTE | 2018-08-02 19:55 | NUR ---
Discharge instructions given as ordered. Encourage to follow up with PMD as instructed. All questions and concerns addressed. Patient verbalized understanding. Medication reconciliation form completed and copy given to patient. Home medications held in Pharmacy returned to patient, and needed vaccines given. IV removed with catheter intact, pressure dressing applied. Patient taken to vehicle via wheelchair with all personal belongings, accompanied by staff and family member. No distress noted at time of departure.
== END 2018-08-02 19:55 | disposition home or self-care (01) | DRG 543 ==
LOC: ER 12:39 → OVERFLOW 18:50 → CENTRAL 20:06
PROVIDERS: ADMIT Nurse Practitioner Acute Care; ATTEND Internal Medicine Cardiovascular Disease
PROC: 07DR3ZX Extraction of Iliac Bone Marrow, Percutaneous Approach, Diagnostic (ICD-10-PCS; principal; 2018-07-25)
DX: C79.51 Secondary malignant neoplasm of bone (principal); C90.00 Multiple myeloma not having achieved remission; E03.9 Hypothyroidism, unspecified; E11.9 Type 2 diabetes mellitus without complications; E87.5 Hyperkalemia; F17.200 Nicotine dependence, unspecified, uncomplicated; I10 Essential (primary) hypertension; J44.9 Chronic obstructive pulmonary disease, unspecified; K57.30 Diverticulosis of large intestine without perforation or abscess without bleeding; K86.9 Disease of pancreas, unspecified; M43.16 Spondylolisthesis, lumbar region; M47.816 Spondylosis without myelopathy or radiculopathy, lumbar region; M48.061 Spinal stenosis, lumbar region without neurogenic claudication; Z79.899 Other long term (current) drug therapy; Z80.0 Family history of malignant neoplasm of digestive organs; Z80.3 Family history of malignant neoplasm of breast; Z80.7 Family history of other malignant neoplasms of lymphoid, hematopoietic and related tissues; Z83.3 Family history of diabetes mellitus; Z88.0 Allergy status to penicillin; Z88.8 Allergy status to other drugs, medicaments and biological substances
CPT/HCPCS: 36415; 71250; 71260; 72131; 72158; 72192; 74177; 78306; 80048; 80053; 81001; 82378; 82784; 82962; 83036; 83615; 84155; 84165; 84443; 84484; 85025; 85610; 85730; 86300; 86301; 86304; 86334; 86335; 93005; 94640; 96361; 96365; 96375; A6257; G0378; J0696; J1815; J2405

== ENCOUNTER → 2018-09-11 | Outpatient (CLI) | payer BC ==
[~2018-09-11] MED LIST: GEMF600T7 PO; GLIM4TAB42 PO; LEVO50TA7 PO; LISI-275 PO; METF-371 PO; PRO10T PO; SITA100T7 PO; TEMA30CA PO
[2018-09-11 12:31] LABS: Potassium 4.9 mmol/L (3.5-5.1)
[2018-09-11 12:45] LABS: Albumin 3.6 g/dL (3.4-5.0); BUN/Creatinine Ratio 25.6; Bilirubin, Total 0.2 mg/dL (0.2-1.0); Calcium 9.5 mg/dL (8.5-10.1); Total Protein 7.3 g/dL (6.4-8.2)
[2018-09-11 12:47] LABS: Hepatitis B Surface Antibody Negative
[2018-09-11 13:24] LABS: Hepatitis A Total Antibody Negative
[2018-09-11 19:55] LABS: Hepatitis B Surface Antigen Negative (Negative); Hepatitis C Antibody Negative (Negative)
[2018-09-11 21:18] LABS: Hepatitis B Core Total AB Negative
== END | disposition home or self-care (01) ==
LOC: LAB 09:48
PROVIDERS: ATTEND Internal Medicine Cardiovascular Disease
DX: E11.9 Type 2 diabetes mellitus without complications (principal); K75.9 Inflammatory liver disease, unspecified; I10 Essential (primary) hypertension; E03.9 Hypothyroidism, unspecified; Z20.5 Contact with and (suspected) exposure to viral hepatitis
CPT/HCPCS: 36415; 80053; 83036; 84439; 84443; 86704; 86706; 86708; 86803; 87340